=== PATIENT | female | born 1985 | race Two or more races ===

== ENCOUNTER → 2024-07-19 09:21 | Outpatient (CLI) | payer OTHER | END | disposition home or self-care (01) | LOC: PRENATAL 09:21 | PROVIDERS: ATTEND Obstetrics & Gynecology Maternal & Fetal Medicine | DX: O36.80X0 Pregnancy with inconclusive fetal viability, not applicable or unspecified (principal); Z36.82 Encounter for antenatal screening for nuchal translucency; O10.019 Pre-existing essential hypertension complicating pregnancy, unspecified trimester; O34.40 Maternal care for other abnormalities of cervix, unspecified trimester; O09.529 Supervision of elderly multigravida, unspecified trimester; Z36.9 Encounter for antenatal screening, unspecified; Z3A.13 13 weeks gestation of pregnancy ==

== ENCOUNTER 2024-09-10 14:24 | Outpatient (CLI) | payer OTHER | END 2024-09-10 14:25 | disposition home or self-care (01) | LOC: PRENATAL 14:24 | PROVIDERS: ATTEND Obstetrics & Gynecology Maternal & Fetal Medicine | DX: O35.3XX0 Maternal care for (suspected) damage to fetus from viral disease in mother, not applicable or unspecified (principal); O44.00 Complete placenta previa NOS or without hemorrhage, unspecified trimester; O10.019 Pre-existing essential hypertension complicating pregnancy, unspecified trimester; O09.529 Supervision of elderly multigravida, unspecified trimester; O34.40 Maternal care for other abnormalities of cervix, unspecified trimester; Z3A.21 21 weeks gestation of pregnancy ==

== ENCOUNTER 2024-11-05 09:15 | Outpatient (CLI) | payer OTHER ==
[2024-11-07] MEDS ORDERED: HUMULIN N100 UNIT/2 SUBCUTANEO (15:55)
[2024-11-07] MEDS ORDERED: ADVOCATE SYRIN1 EAC7 SUBCUTANEO (15:55)
== END 2024-11-05 09:19 | disposition home or self-care (01) ==
LOC: PRENATAL 09:15
PROVIDERS: ATTEND Obstetrics & Gynecology Maternal & Fetal Medicine
DX: O26.849 Uterine size-date discrepancy, unspecified trimester (principal); O10.019 Pre-existing essential hypertension complicating pregnancy, unspecified trimester; O09.529 Supervision of elderly multigravida, unspecified trimester; O24.419 Gestational diabetes mellitus in pregnancy, unspecified control; Z3A.29 29 weeks gestation of pregnancy

== ENCOUNTER 2024-11-14 02:48 | Emergency (ER) | payer OTHER ==
[~2024-11-14] VITALS: Ht 167.6 cm; Wt 93.0 kg
[~2024-11-14 02:48] MED LIST: ADVOCATE SYRIN1 EAC7 SUBCUTANEO; HUMULIN N100 UNIT/2 SUBCUTANEO; HUMULIN R100 UNIT/1 SUBCUTANEO
[2024-11-14] MEDS ORDERED: ADULT ASPIRIN81 MG PO (02:54)
[2024-11-14] MEDS ORDERED: LABETALOL HCL100 MG PO (02:54)
[2024-11-14] MEDS ORDERED: FAMOTIDINE/PF 20 MG/2 ML VIAL IV PUSH STA (04:14)
[2024-11-14] MEDS ORDERED: ONDANSETRON HCL 2 MG/ML VIAL IV STA (04:14)
[2024-11-14] MEDS ORDERED: 0.9 % SODIUM CHLORIDE 1,000 ML IV ONE (04:15)
[2024-11-14] MEDS ORDERED: ACETAMINOPHEN 500 MG GEL..CAP PO STA (04:16)
[2024-11-14] MEDS ORDERED: ACETAMINOPHEN 500 MG GEL..CAP PO ONE (04:18)
[2024-11-14] MEDS ORDERED: ONDANSETRON HCL 2 MG/ML VIAL ONE (04:19)
[2024-11-14] MEDS ORDERED: FAMOTIDINE/PF 20 MG/2 ML VIAL ONE (04:19)
[2024-11-14 04:47] LABS: HEMATOCRIT 37.6 % (36.0-45.00); HEMOGLOBIN 13.1 g/dL (12.0-15.00); MEAN CELL VOLUME 87.2 fL (80.00-100.00); MEAN CORPUSCULAR HEMOGLOBIN 30.5 pg (27.00-32.0); PLATELET COUNT 263 K/uL (150-450); RED BLOOD COUNT 4.31 M/uL (4.00-6.00); RED CELL DISTRIBUTION WIDTH 13.4 % (11.5-14.5)
[2024-11-14 05:06] LABS: CALCIUM 9.1 mg/dL (8.5-10.1); CREATININE SERUM 0.61 mg/dL (0.55-1.02); GFR 110.36; POTASSIUM 3.91 mEq/L (3.5-5.1)
[2024-11-14 05:48] LABS: PH,URINE 5.5 (5.0-8.0); URINE APPEARANCE Clear; URINE BILIRRUBIN Negative (NEGATIVE); URINE BLOOD Negative; URINE COLOR Yellow; URINE GLUCOSE Negative (NEGATIVE); URINE LEUKOCYTE Negative; URINE NITRATE Negative; URINE PROTEIN Trace (NEGATIVE)
[2024-11-14 05:52] LABS: URINE BACTERIA 107.7 uL (0.0-1933); URINE EPITHELIAL CELLS 12.9 uL (0.0-38.8); URINE RBC 14.1 uL (0.0-20.8); URINE WBC 3.6 uL (0.0-23.2)
[2024-11-14 05:58] LABS: URINE CAST 0.14 uL (0.0-1.40); URINE KETONE >=160 (NEGATIVE)
[2024-11-14] MEDS ORDERED: ZITHROMAX500 MG PO (07:35)
[2024-11-14] MEDS ORDERED: ZYRTEC10 MG PO (07:35)
[2024-11-14 07:50] VITALS: BP 130/83; O2SAT 95
== END 2024-11-14 07:51 ==
LOC: ER 02:51
PROVIDERS: General Practice
DX: O26.893 Other specified pregnancy related conditions, third trimester (principal); B34.9 Viral infection, unspecified; O24.113 Pre-existing type 2 diabetes mellitus, in pregnancy, third trimester; Z79.4 Long term (current) use of insulin; Z3A.30 30 weeks gestation of pregnancy; Z20.822 Contact with and (suspected) exposure to COVID-19

== ENCOUNTER → 2024-12-10 14:18 | Outpatient (CLI) | payer OTHER ==
[~2024-12-10 14:18] MED LIST changes: +ADULT ASPIRIN81 MG PO; +LABETALOL HCL100 MG PO; +ZITHROMAX500 MG PO; +ZYRTEC10 MG PO
== END | disposition home or self-care (01) ==
LOC: PRENATAL 14:18
PROVIDERS: ATTEND Obstetrics & Gynecology Maternal & Fetal Medicine
DX: O26.849 Uterine size-date discrepancy, unspecified trimester (principal); O36.8199 Decreased fetal movements, unspecified trimester, other fetus; O09.529 Supervision of elderly multigravida, unspecified trimester; O34.40 Maternal care for other abnormalities of cervix, unspecified trimester; Z3A.34 34 weeks gestation of pregnancy

== ENCOUNTER 2025-01-01 07:58 | Inpatient (IN) | payer OTHER ==
[~2025-01-01] VITALS: Ht 167.6 cm; Wt 3.2 kg
[2025-01-01 08:43] VITALS: BP 133/74
[2025-01-01] MEDS ORDERED: PRENATA CHEWAB1 EACH PO (09:28)
[2025-01-01] MEDS ORDERED: LABETALOL HCL100 MG PO (09:29)
[2025-01-01] MEDS ORDERED: CHILDREN'S ASPI81 MG (09:29)
[2025-01-01] MEDS ORDERED: HUMULIN N100 UNIT/2 SUBCUTANEO (09:31)
[2025-01-01] MEDS ORDERED: RINGERS SOLUTION,LACTATED 1,000 ML IV SCH (09:45)
[2025-01-01 10:05] LABS: HEMATOCRIT 37.1 % (36.0-45.00); HEMOGLOBIN 12.7 g/dL (12.0-15.00); MEAN CELL VOLUME 87.4 fL (80.00-100.00); MEAN CORPUSCULAR HGB CONC 34.3 g/dl (32.0-36.0); PLATELET COUNT 239 K/uL (150-450); RED BLOOD COUNT 4.24 M/uL (4.00-6.00); RED CELL DISTRIBUTION WIDTH 14.4 % (11.5-14.5)
[2025-01-01 10:19] LABS: INR < 0.93; PARTIAL THROMBOPLASTIN TIME 27.9 SECONDS (22.0-34.0); PROTHROMBIN TIME 9.9 SECONDS (9.0-11.5)
[2025-01-01 10:29] LABS: ALBUMIN 2.6 gm/dL (3.4-5.0); BILIRUBIN TOTAL 0.29 mg/dL (0.3-1.2); CALCIUM 9.2 mg/dL (8.5-10.1); CREATININE SERUM 0.78 mg/dL (0.55-1.02); GFR 83.1; GLOBULINA 3.2 G/DL (2.4-3.5); POTASSIUM 4.36 mEq/L (3.5-5.1); TOTAL PROTEIN 5.8 gm/dL (6.4-8.2)
[2025-01-01 11:41] VITALS: BP 130/77
[2025-01-01] MEDS ORDERED: MISOPROSTOL 25 MCG/4 ML GEL.W.APPL VAG NR (11:45)
[2025-01-01 15:14] VITALS: BP 130/85
[2025-01-01] MEDS ORDERED: MISOPROSTOL 25 MCG/4 ML GEL.W.APPL VAG ONE (17:30)
[2025-01-01 19:07] VITALS: BP 131/74
[2025-01-01 23:53] VITALS: BP 127/84
[2025-01-02] MEDS ORDERED: MISOPROSTOL 25 MCG/4 ML GEL.W.APPL VAG ONE (00:15)
[2025-01-02 03:35] VITALS: BP 122/87
[2025-01-02 07:36] VITALS: BP 126/74
[2025-01-02] MEDS ORDERED: OXYTOCIN 500 ML IV SCH (10:45)
[2025-01-02 12:12] VITALS: BP 141/74
[2025-01-02 15:42] VITALS: BP 134/87
[2025-01-02 16:49] VITALS: BP 134/87
[2025-01-02] MEDS ORDERED: MEPERIDINE HCL 25 MG/ML AMPUL IV ONE (17:15)
[2025-01-02] MEDS ORDERED: PROMETHAZINE HCL 25 MG/ML AMPUL IV ONE (17:15)
[2025-01-02 19:15] VITALS: BP 142/75
[2025-01-02] MEDS ORDERED: CEFAZOLIN SODIUM 1,000 MG VIAL IV ONE (21:15)
[2025-01-02] MEDS ORDERED: ERYTHROMYCIN BASE OPHT 1GM EACH TUBE OP ONE (23:30)
[2025-01-02] MEDS ORDERED: OXYTOCIN 10 UNITS/ML VIAL IV ONE (23:30)
[2025-01-03] MEDS ORDERED: MORPHINE SULFATE 4 MG/ML CARTRIDGE IV PRN (00:15)
[2025-01-03] MEDS ORDERED: MORPHINE SULFATE 4 MG/ML VIAL IV ONE ×2 (01:00→01:30)
[2025-01-03] MEDS ORDERED: OXYTOCIN 1,000 ML IV SCH (03:00)
[2025-01-03 03:55] VITALS: BP 148/83
[2025-01-03 07:23] VITALS: BP 150/80
[2025-01-03 08:04] LABS: HEMOGLOBIN 14.2 g/dL (12.0-15.00); MEAN CELL VOLUME 86.9 fL (80.00-100.00); MEAN CORPUSCULAR HEMOGLOBIN 30.1 pg (27.00-32.0); MEAN CORPUSCULAR HGB CONC 34.6 g/dl (32.0-36.0); PLATELET COUNT 253 K/uL (150-450); RED BLOOD COUNT 4.72 M/uL (4.00-6.00); RED CELL DISTRIBUTION WIDTH 14.7 % (11.5-14.5)
[2025-01-03] MEDS ORDERED: DOCUSATE SODIUM 100MG CAP PO SCH (09:00)
[2025-01-03] MEDS ORDERED: SIMETHICONE 125 MG CAPSULE PO SCH (09:00)
[2025-01-03] MEDS ORDERED: PNV,CALCIUM 72/IRON/FOLIC ACID 1 TAB TABLET PO SCH (09:00)
[2025-01-03] MEDS ORDERED: LABETALOL HCL 100 MG TABLET PO SCH (09:00)
[2025-01-03] MEDS ORDERED: IBUprofen 600 MG TABLET PO SCH (12:00)
[2025-01-03 13:06] VITALS: BP 108/76
[2025-01-03 16:00] VITALS: BP 139/80
[2025-01-04 01:43] VITALS: BP 134/81
[2025-01-04 09:44] VITALS: BP 128/81
[2025-01-04 16:23] VITALS: BP 128/84
[2025-01-04] MEDS ORDERED: DOCUSATE SODIUM 100MG CAP PO SCH (17:00)
[2025-01-05] VITALS: BP 135/80
[2025-01-05 08:06] VITALS: BP 136/83
== END 2025-01-05 15:38 | disposition home or self-care (01) | DRG 788 ==
LOC: LDR 07:58 → O/R 07:58 → OB/GYN 01-03 00:20
PROVIDERS: Obstetrics & Gynecology; ADMIT Obstetrics & Gynecology; ATTEND Obstetrics & Gynecology
PROC: 3E0P7VZ Introduction of Hormone into Female Reproductive, Via Natural or Artificial Opening (ICD-10-PCS; 2025-01-01)
PROC: 4A1HXCZ Monitoring of Products of Conception, Cardiac Rate, External Approach (ICD-10-PCS; 2025-01-01)
PROC: 3E033VJ Introduction of Other Hormone into Peripheral Vein, Percutaneous Approach (ICD-10-PCS; 2025-01-02)
PROC: 10D00Z1 Extraction of Products of Conception, Low, Open Approach (ICD-10-PCS; principal; 2025-01-02 23:15)
DX: O10.02 Pre-existing essential hypertension complicating childbirth (principal); O24.420 Gestational diabetes mellitus in childbirth, diet controlled; O62.1 Secondary uterine inertia; Z3A.37 37 weeks gestation of pregnancy; Z37.0 Single live birth; Z98.891 History of uterine scar from previous surgery